=== PATIENT | female | born 1940 | race Caucasian/White ===

== ENCOUNTER 2016-09-05 13:26 | Inpatient (IN) | payer MEDICARE ==
[2016-09-05] VITALS (8 sets, daily range): BP systolic 94–126; BP diastolic 44–72; PULSE 73–101; RESP 14–18; TEMP 99.1–102.9; O2SAT 91–98
[~2016-09-05] VITALS: Ht 160 cm; Wt 64.4 kg
[~2016-09-05 13:26] MED LIST: ALBU6.7H INH; ASPI1TAB69 PO; DONE10TA7 PO; GABA400C5 PO; MEMA28CA PO; MONT10TA4 PO; NITR1SUB3 SL; OMEP20TA PO; SIMV40TA PO; SPIRCAP INH; SYMB160A INH; VENL75TA PO
--- NOTE | 2016-09-05 14:03 | PD ---
HPI Chief Complaint: Headache Time Seen by Provider: 13:39 Travel History International Travel<30 days: No Contact w/Intl Traveler<30days: No Traveled to known affect area: No History of Present Illness HPI Patient is a 76-year-old female with history of dementia who lives at home with her who presents to emergency room with her family members with complaints of headache and fever. As per patient's , he reports that patient woke up yesterday morning with complaints of a headache. Reports that he gave her some Tylenol, and reports that patient fatigue to have headache all day. reports that patient woke up this morning and complained of headache again, reports that he gave her Aleve. Reports that since her symptoms have not resolved, he decided to bring her to the hospital for evaluation. Reports that he did notice the patient had a wet cough today and appeared more congested. He did not noticed any fevers. Reports that at baseline, patient does have tremors, she has an unstable gait at all times and her gait is unchanged today. does report a remote history of intracerebral aneurysm which occurred a little over 10 years ago which reports could not be coiled due to the morphology of her aneurysm Patient at this time is unable to provide history, she does have history of dementia and does have short-term memory loss. PFSH Past Medical History Hx Anticoagulant Therapy: Yes (BABY ASA) Arthritis: Yes (back) Asthma: Yes Autoimmune Disease: No Blood Disorders: No Anxiety: No Depression: Yes Heart Rhythm Problems: No Cancer: No Cardiac Catheterization: Yes Cardiovascular Problems: Yes ([place], [place]OL) High Cholesterol: Yes Chemotherapy: No Chest Pain: Yes Congestive Heart Failure: No COPD: Yes Cerebrovascular Accident: No Coronary Artery Disease: Yes Dementia: Yes Diabetes: No Diminished Hearing: No Endocrine: No Gastrointestinal Disorders: Yes GERD: Yes Genitourinary: Yes Headaches: Yes Hepatitis: No Hiatal Hernia: No Hypertension: Yes Immune Disorder: No Implanted Vascular Access Dvce: Yes Kidney Stones: No Musculoskeletal: Yes Neurologic: Yes (DEMENTIA) Psychiatric: No Reproductive: No Respiratory: Yes (copd) Immunizations Current: Yes Migraines: No Myocardial Infarction: Yes (2004) Radiation Therapy: No Renal Failure: No Seizures: No Sickle Cell Disease: No Sleep Apnea: No Thyroid Disease: No Ulcer: No ?: Not Menopausal: Yes Past Surgical History Abdominal Surgery: Yes (CHOLYSYSTECTOMY) AICD: No Appendectomy: Yes Arteriovenous Shunt: No Body Medical Devices: CARDIAC STENT Cardiac Surgery: Yes (CARDIAC STENT) Cholecystectomy: Yes Coronary Stent: Yes (x2) Ear Surgery: No Endocrine Surgery: No Eye Surgery: Yes (BILAT CATARACT) Genitourinary Surgery: No Gynecologic Surgery: Yes (TOTAL HYSTERECTOMY) Hysterectomy: Yes Insulin Pump: No Joint Replacement: No Neurologic Surgery: No Oral Surgery: Yes (TOP TEETH EXTRACTED) Pacemaker: No Thoracic Surgery: No Tonsillectomy: Yes Other Surgery: Yes Social History Alcohol Use: No Tobacco Use: No (quit 35+ yrs ago, smoked 1 ppd for 20+ yrs) Substance Use: No Allergies-Medications (Allergen,Severity, Reaction): Coded Allergies: Plavix (Verified Allergy, Mild, Rash, 09/05/16) Reported Meds & Prescriptions Reported Meds & Active Scripts Active Reported Donepezil 10 Mg Tab 5 Mg PO BID Effexor (Venlafaxine HCl) 75 Mg Tab 75 Mg PO DAILY Spiriva Handihaler (Tiotropium Inh) 18 Mcg Cap 18 Mcg INH DAILY 1 capsule = 18 mcg Omeprazole 20 Mg Tab 20 Mg PO DAILY Nitroglycerin SL (Nitroglycerin) 0.4 Mg Subl 0.4 Mg SL DIRECTED PRN ONE TABLET UNDER THE TONGUE NEEDED FOR CHEST PAIN, MAY REPEAT EVERY FIVE MINUTES FOR A TOTAL OF 3 DOSES OR CALL 911 IF NO RELIEF Namenda Xr (Memantine) 28 Mg Caper 28 Mg PO DAILY Montelukast (Montelukast Sodium) 10 Mg Tab 10 Mg PO HS Gabapentin 400 Mg Cap 400 Cap PO BID Symbicort Inh (Budesonide/Formoterol Fumarate) 160-4.5 Mcg/Act Aero 2 Puff INH Q12HR Simvastatin 40 Mg Tab 40 Mg PO HS Aspirin 81 Mg Tabdr 81 Mg PO DAILY Proventil Hfa 6.7 GM Inh (Albuterol Sulfate) 90 Mcg/Act Aer 1 Puff INH Q4H PRN Review of Systems General / Constitutional: No: Fever Eyes: No: Visual changes HENT: Positive: Headaches Cardiovascular: No: Chest Pain or Discomfort Respiratory: No: Shortness of Breath Gastrointestinal: No: Abdominal Pain Genitourinary: No: Dysuria Musculoskeletal: No: Pain Skin: No Rash Neurologic: No: Weakness Psychiatric: No: Depression Endocrine: No: Polydipsia Hematologic/Lymphatic: No: Easy Bruising Physical Exam Exam Limitations: Poor Historian Narrative GENERAL: mild distress, patient overall confused SKIN: Warm and dry. HEAD: Atraumatic. Normocephalic. EYES: Pupils equal and round. No injection or drainage. ENT: No nasal bleeding or discharge. Mucous membranes pink and moist. NECK: Trachea midline. No JVD. CARDIOVASCULAR: Regular rate and rhythm. No murmur appreciated. RESPIRATORY: No accessory muscle use. Clear to auscultation. Breath sounds equal bilaterally. GASTROINTESTINAL: Abdomen soft, non-tender, nondistended. Hepatic and splenic margins not palpable. MUSCULOSKELETAL: No obvious deformities. No clubbing. No cyanosis. No edema. NEUROLOGICAL: Awake and alert. No obvious cranial nerve deficits. Motor grossly within normal limits. Normal speech. PSYCHIATRIC: Appropriate mood and affect; insight and judgment normal. Data Data Last Documented VS Vital Signs Date Time Temp Pulse Resp B/P Pulse Ox O2 Delivery O2 Flow Rate FiO2 09/05/16 14:15 98 Room Air 09/05/16 14:15 102.9 82 18 106/44 Orders Electrocardiogram (09/05/16 13:49) Complete Blood Count With Diff (09/05/16 13:49) Comprehensive Metabolic Panel (09/05/16 13:49) Prothrombin Time / Inr (Pt) (09/05/16 13:49) Act Partial Throm Time (Ptt) (09/05/16 13:49) Lactic Acid Sepsis Protocol (09/05/16 13:49) Magnesium (Mg) (09/05/16 13:49) Lipase (09/05/16 13:49) Ckmb (Isoenzyme) Profile (09/05/16 13:49) Troponin I (09/05/16 13:49) Urinalysis - C+S If Indicated (09/05/16 13:49) Influenzae A/B Antigen (09/05/16 13:49) Blood Culture (09/05/16 13:49) Chest, Single Ap (09/05/16 13:49) Ecg Monitoring (09/05/16 13:49) Iv Access Insert/Monitor (09/05/16 13:49) Oximetry (09/05/16 13:49) Ct Brain W/O Iv Contrast(Rout) (09/05/16 14:00) Dexamethasone Inj (Decadron Inj) (09/05/16 14:15) Piperacil-Tazo 3.375 Gm Premix (Zosyn 3. (09/05/16 14:15) Vancomycin Inj (Vancomycin Inj) (09/05/16 14:15) Ct Thorax/ Chest Wo Iv Contras (09/05/16 ) ^ Straight Catheter (09/05/16 15:43) Acetaminophen (Tylenol) (09/05/16 16:00) Labs Laboratory Tests Test 09/05/16 09/05/16 09/05/16 13:50 13:58 15:45 White Blood Count 4.8 TH/MM3 Red Blood Count 4.61 MIL/MM3 Hemoglobin 13.7 GM/DL Hematocrit 40.5 % Mean Corpuscular Volume 88.0 FL Mean Corpuscular Hemoglobin 29.8 PG Mean Corpuscular Hemoglobin 33.8 % Concent Red Cell Distribution Width 14.2 % Platelet Count 118 TH/MM3 Mean Platelet Volume 8.3 FL Neutrophils (%) (Auto) 84.9 % Lymphocytes (%) (Auto) 8.4 % Monocytes (%) (Auto) 4.5 % Eosinophils (%) (Auto) 0.8 % Basophils (%) (Auto) 1.4 % Neutrophils # (Auto) 4.1 TH/MM3 Lymphocytes # (Auto) 0.4 TH/MM3 Monocytes # (Auto) 0.2 TH/MM3 Eosinophils # (Auto) 0.0 TH/MM3 Basophils # (Auto) 0.1 TH/MM3 CBC Comment DIFF FINAL Differential Comment Prothrombin Time 10.7 SEC Prothromb Time International 1.0 RATIO Ratio Activated Partial 27.1 SEC Thromboplast Time Sodium Level 141 MEQ/L Potassium Level 3.7 MEQ/L Chloride Level 106 MEQ/L Carbon Dioxide Level 23.6 MEQ/L Anion Gap 11 MEQ/L Blood Urea Nitrogen 17 MG/DL Creatinine 0.74 MG/DL Estimat Glomerular Filtration 76 ML/MIN Rate Random Glucose 107 MG/DL Calcium Level 8.6 MG/DL Magnesium Level 2.0 MG/DL Total Bilirubin 0.5 MG/DL Aspartate Amino Transf 29 U/L (AST/SGOT) Alanine Aminotransferase 29 U/L (ALT/SGPT) Alkaline Phosphatase 98 U/L Total Creatine Kinase 89 U/L Troponin I LESS THAN 0.02 NG/ML Total Protein 6.6 GM/DL Albumin 3.5 GM/DL Lipase 148 U/L Lactic Acid Level 1.4 mmol/L Urine pH 6.0 Urine Protein NEG mg/dL Urine Glucose (UA) 100 mg/dL Urine Ketones 15 mg/dL Urine Occult Blood LARGE Urine Nitrite POS Urine Bilirubin NEG Urine Leukocyte Esterase NEG MDM Medical Decision Making Medical Screen Exam Complete: Yes Emergency Medical Condition: Yes Interpretation(s) EKG at 1423: NSR at 90bpm, qt/qtc: 344/396, no acute st or t wave changes Vital Signs Date Time Temp Pulse Resp B/P Pulse Ox O2 Delivery O2 Flow Rate FiO2 09/05/16 13:29 101.7 101 16 126/72 91 Differential Diagnosis Intracranial hemorrhage, meningitis, influenza, pneumonia, migraine headaches, viral syndrome Narrative Course Patient is a 76-year-old female with history of intracranial aneurysm, dementia , presents to emergency room with complaints of headache. Patient's reports that patient is complaining of headache since yesterday, patient did take Tylenol yesterday for headache with no relief of symptoms. Reports that patient woke up this morning with similar symptoms. Patient does have history dementia, patient unable to provide history of present illness this time. Patient at this time denies headache or dizziness. Patient denies any cough or congestion, denies any chest pain or shortness of breath. All patient can tell me right now is that she "does not feel good." Given her symptoms, there are concerns for intracranial hemorrhage as she does have history of aneurysm which could not be coiled in the past. There is also concerns for possible meningitis given her fever as well as mild tachycardia. CT of the head was ordered. Patient has been pancultured, lactate ordered. IV antibiotics ordered. Plan to monitor patient Patient reevaluated, patient reports that she has resolution of headache at this time. Vital Signs Date Time Temp Pulse Resp B/P Pulse Ox O2 Delivery O2 Flow Rate FiO2 09/05/16 14:15 98 Room Air 09/05/16 14:15 102.9 82 18 106/44 98 Room Air 09/05/16 13:29 101.7 101 16 126/72 91 CBC & BMP Diagram 09/05/16 13:[address] 09/05/16 1400 Signed Impressions: Service Date/Time: Monday, September 05, 2016 14:01 - CONCLUSION: Diffuse atrophy and chronic ischemic findings. No acute intracranial findings. Abdelrahman Copeland MD Chest X-Ray 09/05/16 1349 Signed Impressions: Service Date/Time: Monday, September 05, 2016 14:00 - CONCLUSION: Confluent right apical opacity. Differential diagnosis is consolidation, mass, and soft tissue density related to rotation of the patient. Recommend repeat study with PA and lateral views when possible. Abdelrahman Copeland MD Microbiology Date/Time Procedure Status Source Growth 09/05/16 13:50 Aerobic Blood Culture Received Blood Peripheral Pending 09/05/16 13:50 Anaerobic Blood Culture Received Blood Peripheral Pending 09/05/16 13:58 Aerobic Blood Culture Received Blood Peripheral Pending 09/05/16 13:58 Anaerobic Blood Culture Received Blood Peripheral Pending 09/05/16 13:58 Influenza Types A,B Antigen (KARRIE) - Final Complete Nasal Aspirate NEGATIVE FOR FLU A AND B ANTIGEN.... 1506: I did review all labs and all studies with patient and family, I did review consideration for lumbar puncture. Family would like patient to be straight cathed for urine first before they consider LP as there reports that patient has had symptoms similar to this when she has had a UTI in the past. straight cath ordered. Patient at this time has complete resolution of headache. Given her symptoms, patient with low probability for meningitis. Patient with no menigmus on exam. Family does not want LP at this time. Ct of chest obtained to evaluate for possible pneumonia. CTA of brain ordered to evaluate for possible aneurysm Teresa Rosales DO Sep 05, 2016 14:03
[2016-09-05] MEDS ORDERED: VANCOMYCIN INJ 950 MG in SODIUM CHLOR 0.9% 250 ML INJ 250 ML IV ONE (14:15)
[2016-09-05] MEDS ORDERED: DEXAMETHASONE SOD PHOS 20 MG/5 ML VIAL IV PUSH ONE (14:15)
[2016-09-05] MEDS ORDERED: PIPERACIL-TAZO 3.375 GM PREMIX 50 ML IV ONE (14:15)
--- NOTE | 2016-09-05 14:17 | RADHPO ---
EXAM DATE/TIME: 09/05/2016 14:00 [facility] COMPARISON: No previous studies available for comparison. INDICATIONS : Patient states cough. MEDICAL HISTORY : Hypertension. Myocardial infarction. Dementia SURGICAL HISTORY : Tonsillectomy. Coronary artery stent. eye prosthesis, cataract surgery ENCOUNTER: Initial ACUITY: 1 day PAIN SCORE: 0/10 LOCATION: Bilateral chest FINDINGS: Single AP view of the chest. Confluent opacity in the right lung apex may represent overlying soft ti ssue shadow do to patient positioning. Right upper lobe consolidation in mass also in the differentia l diagnosis. Lungs otherwise clear. Cardiomediastinal silhouette within normal limits. No evidence of pleural effusion or pneumothorax. CONCLUSION: Confluent right apical opacity. Differential diagnosis is consolidation, mass, and soft tissue densit y related to rotation of the patient. Recommend repeat study with PA and lateral views when possible. Abdelrahman Copeland MD on September 05, 2016 at 14:13 Board Certified Radiologist. This report was verified electronically.
[2016-09-05 14:18] LABS: AUTOMATED NEUTROPHIL # 4.1 TH/MM3 (1.8-7.7); BASOPHIL # 0.1 TH/MM3 (0-0.2); BASOPHIL % 1.4 % (0.0-2.0); EOSINOPHIL % 0.8 % (0.0-4.0); HEMATOCRIT 40.5 % (35.0-46.0); HEMO FLAGS DIFF FINAL; LYMPH % 8.4 % (9.0-44.0); LYMPHOCYTE # 0.4 TH/MM3 (1.0-4.8); MEAN CORPUSCULAR HEMOGLOBIN 29.8 PG (27.0-34.0); MEAN CORPUSCULAR HGB CONC 33.8 % (32.0-36.0); MONO % 4.5 % (0.0-8.0); NEUT % 84.9 % (16.0-70.0); PLATELET COUNT 118 TH/MM3 (150-450); RED BLOOD COUNT 4.61 MIL/MM3 (4.00-5.30); RED CELL DISTRIBUTION WIDTH 14.2 % (11.6-17.2); WHITE BLOOD COUNT 4.8 TH/MM3 (4.0-11.0)
[2016-09-05 14:26] LABS: CHLORIDE 106 MEQ/L (98-107); POTASSIUM 3.7 MEQ/L (3.5-5.1); SODIUM (NA) 141 MEQ/L (136-145)
[2016-09-05 14:30] LABS: APTT (PATIENT) 27.1 SEC (24.3-30.1); PROTHROMBIN TIME - PATIENT 10.7 SEC (9.8-11.6)
[2016-09-05 14:32] LABS: ANION GAP 11 MEQ/L (5-15); BICARBONATE 23.6 MEQ/L (21.0-32.0); BLOOD UREA NITROGEN 17 MG/DL (7-18)
[2016-09-05 14:34] LABS: AST (GOT) 29 U/L (15-37); GLOMERULAR FILTRATION RATE 76 ML/MIN (>89)
[2016-09-05 14:36] LABS: TOTAL BILIRUBIN ADULT 0.5 MG/DL (0.2-1.0)
[2016-09-05 14:37] LABS: ALKALINE PHOSPHATASE 98 U/L (45-117)
[2016-09-05 14:40] LABS: CREATINE KINASE 89 U/L (26-192)
[2016-09-05 14:45] LABS: ALT (GPT) 29 U/L (10-53)
--- NOTE | 2016-09-05 14:50 | RADHPO ---
EXAM DATE/TIME: 09/05/2016 14:01 [facility] COMPARISON: CT BRAIN W/O CONTRAST, March 09, 2016, 22:03. INDICATIONS : Fever, weakness and headache. RADIATION DOSE: 59.98 CTDIvol (mGy) MEDICAL HISTORY : Cardiovascular disease. Chronic obstructive pulmonary disease. Hypertension.Ant icoagulant therapy. SURGICAL HISTORY : Coronary artery stent. ENCOUNTER: Initial ACUITY: 1 day PAIN SCALE: 0/10 LOCATION: cranial TECHNIQUE: Multiple contiguous axial images were obtained of the head. Using automated exposure control and adjustment of the mA and/or kV according to patient size, radiation dose was kept as low as reasonably achievable to obtain optimal diagnostic quality images. FINDINGS: CEREBRUM: Ventricles, sulci, and cisterns are diffusely prominent indicating diffuse atrophy. No change in prominent diffuse periventricular hypodensity indicating chronic ischemic findings. No evid ence of midline shift, mass lesion, hemorrhage or acute infarction. No extra-axial fluid collections are seen. POSTERIOR FOSSA: The cerebellum and brainstem are intact. The 4th ventricle is midline. The cer ebellopontine angle is unremarkable. EXTRACRANIAL: The visualized portion of the orbits is intact. SKULL: The calvaria is intact. No evidence of skull fracture. CONCLUSION: Diffuse atrophy and chronic ischemic findings. No acute intracranial findings. Abdelrahman Copeland MD on September 05, 2016 at 14:47 Board Certified Radiologist. This report was verified electronically.
[2016-09-05] MEDS ORDERED: ACETAMINOPHEN 325 MG TAB PO ONE ×2 (16:00→22:45)
[2016-09-05 16:01] LABS: BLOOD, URINE LARGE (NEG); GLUCOSE,URINE 100 mg/dL (NEG); KETONE, URINE 15 mg/dL (NEG)
[2016-09-05 16:06] LABS: NITRITE,URINE POS (NEG)
[2016-09-05 16:13] LABS: URINE COLOR YELLOW (YELLW/STRAW)
[2016-09-05 16:14] LABS: BACTERIA, URINE MANY /hpf; MUCUS URINE FEW /lpf (OCC); RBC, URINE 0-3 /hpf (0-3); SQUAMOUS EPITHELIAL CELL URINE 0-5 /hpf (0-5)
[2016-09-05 16:15] LABS: COMMENT (UR) CATH-CULTURE IND; CULTURE IF INDICATED CATH CULTURE IND
[2016-09-05] MEDS ORDERED: IOHEXOL 350 MG/ML 10 ML VIAL (for RAD DIAG) IV ONE (16:46)
--- NOTE | 2016-09-05 17:00 | RADHPO ---
EXAM DATE/TIME: 09/05/2016 16:21 [facility] COMPARISON: CHEST SINGLE AP, September 05, 2016, 14:00. INDICATIONS : Confluent right apical opacity. RADIATION DOSE: 8.55 CTDIvol (mGy) MEDICAL HISTORY : Chronic obstructive pulmonary disease. Hypertension. SURGICAL HISTORY : Coronary artery stent. ENCOUNTER: Initial ACUITY: 1 day PAIN SCALE: 5/10 LOCATION: chest TECHNIQUE: Volumetric scanning of the chest was performed. Using automated exposure control and adjustment of t he mA and/or kV according to patient size, radiation dose was kept as low as reasonably achievable to obtain optimal diagnostic quality images. FINDINGS: LUNGS: 5-6 mm right middle lobe nodular density on image #34. Mild inferior right lower lobe atelectasis edison jennifer consolidation posteriorly. The right lung apex is clear. Chest x-ray density likely represented p rominent vasculature, that is within normal limits for age. PLEURAE: There is no pleural thickening or pleural effusion. MEDIASTINUM: Diffuse aortic calcification. Thoracic aortic diameter within normal limits. Small pericardial effusi on. No enlarged lymph nodes. AXILLAE: Within normal limits. No lymphadenopathy. MUSCULOSKELETAL: Prominent degenerative findings of the thoracic spine. Severe central osteophyte at T10-11 resulting in severe central canal narrowing. MISCELLANEOUS: The visualized upper abdominal organs demonstrate no acute abnormality. CONCLUSION: 1. No evidence of mass at the right lung apex. Chest x-ray density likely represents prominent right- sided mediastinal vasculature. 2. Degenerative findings of the thoracic spine with central osteophyte resulting in severe central ca nal narrowing at T10-11. 3. 5-6 mm right middle lobe nodular density. Recommend 12 month followup noncontrast chest CT. 4. Patchy right lower lung atelectasis. The findings described above include a newly detected solid pulmonary nodule of 4-6 mm average diamet er. Guidelines from the Fleischner Society for the follow-up and management of newly detected indeter minate pulmonary nodules in persons >34 years old depend on nodule size (average of length and width) and underlying risk factors (including smoking and other risk factors). Please consider the followi ng recommendations after clinical assessment of risk factors. For 4-6 mm nodules: In low risk patients, follow-up CT at 12 months; if unchanged, no further follow-up needed. In high risk patients, initial follow-up CT at 6-12 months, then 18-24 months if no change. Abdelrahman Copeland MD on September 05, 2016 at 16:53 Board Certified Radiologist. This report was verified electronically.
[2016-09-05] MEDS ORDERED: SODIUM CHLORID 0.9% 500 ML INJ 500 ML IV ONE (17:30)
--- NOTE | 2016-09-05 17:30 | PD ---
Physical Exam Narrative Received sign out from previous provider to follow up CTA, CT chest and UA 76yo F with PMH of dementia and brain aneurysm here with headache, coughing and shaking. Pt has resting tremors in arms but said it was worst before. Pt currently denies any headache, neck pain. Pt is well appearing and has no nuchal rigidity, no focal neurologic deficits. Pt presents to the ED with fever , tachycardia and empirically given vancomycin and zosyn. CT brain showed no acute intracranial findings. CXR showed confluent right opacity so CT chest was ordered to further evaluate. CT chest showed no evidence of mass in right lung apex. CXR density likely prominent right sided mediastinal vasculature. However, there is a newly detected solid pulmonary nodule of 4-6mm and I informed pt of this so she can have follow up in 6-12 months. Labs reviewed, no leukocytosis. Lactic acid 1.4. CMP unremarkable. UA showed positive nitrite. Pt given antibiotics already. CTA head showed stable tiny aneurysms involving the basilar tip and right MCA bifurcation. No significant stenosis or occlusion. CTA neck showed no significant stenosis or occlusion. I reevaluated the patient and she states she does not feel well. States her headache is back. Acetaminophen given. Will admit patient for sepsis secondary to UTI. Discussed with Dr. Landry and accepted to his service. Data Data Last Documented VS Vital Signs Date Time Temp Pulse Resp B/P Pulse Ox O2 Delivery O2 Flow Rate FiO2 09/05/16 18:10 84 16 109/51 93 Room Air 09/05/16 17:10 99.1 Orders Electrocardiogram (09/05/16 13:49) Complete Blood Count With Diff (09/05/16 13:49) Comprehensive Metabolic Panel (09/05/16 13:49) Prothrombin Time / Inr (Pt) (09/05/16 13:49) Act Partial Throm Time (Ptt) (09/05/16 13:49) Lactic Acid Sepsis Protocol (09/05/16 13:49) Magnesium (Mg) (09/05/16 13:49) Lipase (09/05/16 13:49) Ckmb (Isoenzyme) Profile (09/05/16 13:49) Troponin I (09/05/16 13:49) Urinalysis - C+S If Indicated (09/05/16 13:49) Influenzae A/B Antigen (09/05/16 13:49) Blood Culture (09/05/16 13:49) Chest, Single Ap (09/05/16 13:49) Ecg Monitoring (09/05/16 13:49) Iv Access Insert/Monitor (09/05/16 13:49) Oximetry (09/05/16 13:49) Ct Brain W/O Iv Contrast(Rout) (09/05/16 14:00) Dexamethasone Inj (Decadron Inj) (09/05/16 14:15) Piperacil-Tazo 3.375 Gm Premix (Zosyn 3. (09/05/16 14:15) Vancomycin Inj (Vancomycin Inj) (09/05/16 14:15) Ct Thorax/ Chest Wo Iv Contras (09/05/16 ) ^ Straight Catheter (09/05/16 15:43) Acetaminophen (Tylenol) (09/05/16 16:00) Cta Brain W Iv Contrast W 3d (09/05/16 ) Urine Culture (09/05/16 15:45) Cta Neck W Iv Contrast W 3d (09/05/16 ) Sodium Chlorid 0.9% 500 Ml Inj (Ns 500 M (09/05/16 17:30) Iohexol 350 Inj (Omnipaque 350 Inj) (09/05/16 16:46) Acetaminophen (Tylenol) (09/05/16 22:45) Admit Order (Ed Use Only) (09/05/16 22:41) Labs Laboratory Tests Test 09/05/16 09/05/16 09/05/16 13:50 13:58 15:45 White Blood Count 4.8 TH/MM3 Red Blood Count 4.61 MIL/MM3 Hemoglobin 13.7 GM/DL Hematocrit 40.5 % Mean Corpuscular Volume 88.0 FL Mean Corpuscular Hemoglobin 29.8 PG Mean Corpuscular Hemoglobin 33.8 % Concent Red Cell Distribution Width 14.2 % Platelet Count 118 TH/MM3 Mean Platelet Volume 8.3 FL Neutrophils (%) (Auto) 84.9 % Lymphocytes (%) (Auto) 8.4 % Monocytes (%) (Auto) 4.5 % Eosinophils (%) (Auto) 0.8 % Basophils (%) (Auto) 1.4 % Neutrophils # (Auto) 4.1 TH/MM3 Lymphocytes # (Auto) 0.4 TH/MM3 Monocytes # (Auto) 0.2 TH/MM3 Eosinophils # (Auto) 0.0 TH/MM3 Basophils # (Auto) 0.1 TH/MM3 CBC Comment DIFF FINAL Differential Comment Prothrombin Time 10.7 SEC Prothromb Time International 1.0 RATIO Ratio Activated Partial 27.1 SEC Thromboplast Time Sodium Level 141 MEQ/L Potassium Level 3.7 MEQ/L Chloride Level 106 MEQ/L Carbon Dioxide Level 23.6 MEQ/L Anion Gap 11 MEQ/L Blood Urea Nitrogen 17 MG/DL Creatinine 0.74 MG/DL Estimat Glomerular Filtration 76 ML/MIN Rate Random Glucose 107 MG/DL Calcium Level 8.6 MG/DL Magnesium Level 2.0 MG/DL Total Bilirubin 0.5 MG/DL Aspartate Amino Transf 29 U/L (AST/SGOT) Alanine Aminotransferase 29 U/L (ALT/SGPT) Alkaline Phosphatase 98 U/L Total Creatine Kinase 89 U/L Troponin I LESS THAN 0.02 NG/ML Total Protein 6.6 GM/DL Albumin 3.5 GM/DL Lipase 148 U/L Lactic Acid Level 1.4 mmol/L Urine Color YELLOW Urine Turbidity CLEAR Urine pH 6.0 Urine Specific [place] 1.029 Urine Protein NEG mg/dL Urine Glucose (UA) 100 mg/dL Urine Ketones 15 mg/dL Urine Occult Blood LARGE Urine Nitrite POS Urine Bilirubin NEG Urine Leukocyte Esterase NEG Urine RBC 0-3 /hpf Urine WBC 6-8 /hpf Urine Squamous Epithelial 0-5 /hpf Cells Urine Bacteria MANY /hpf Urine Mucus FEW /lpf Microscopic Urinalysis Comment CATH-CULTURE IND MDM Supervised Visit with MARS: No Diagnosis Primary Impression: Sepsis Qualified Code: A41.9 - Sepsis, due to unspecified organism Additional Impression: UTI (urinary tract infection) Qualified Code: N39.0 - Urinary tract infection with hematuria, site unspecified Admitting Information Admitting Physician Requests: Admit Aiyana Fernandez DO Sep 05, 2016 17:30
--- NOTE | 2016-09-05 22:00 | RADHPO ---
EXAM DATE/TIME: 09/05/2016 16:32 [facility] COMPARISON: CTA BRAIN W 3D RECON, May 22, 2013, 18:41. INDICATIONS : Evaluate for aneurysm. Cephalgia. IV CONTRAST: 75 cc Omnipaque 350 (iohexol) IV RADIATION DOSE: 42.80 CTDIvol (mGy) ; Combined studies MEDICAL HISTORY : Chronic obstructive pulmonary disease. Hypertension. Dementia. SURGICAL HISTORY : Coronary artery stent. ENCOUNTER: Initial ACUITY: 2 days PAIN SCALE: 6/10 LOCATION: cranial TECHNIQUE: Volumetric scanning was performed using a multi-row detector CT scanner. The data was post processed with a variety of visualization algorithms including full volume maximum intensity projection, multi -planar sliding thin slab reformation, curved planar reformation, and surface rendering techniques. Using automated exposure control and adjustment of the mA and/or kV according to patient size, radiat ion dose was kept as low as reasonably achievable to obtain optimal diagnostic quality images. FINDINGS: There are stable tiny aneurysms involving the basilar tip and the right MCA bifurcation. These have n ot changed significantly in size compared to the previous examination in May of 2013. The right A1 segment is small in caliber compared to left. There is no significant stenosis or occlusion of the anterior or middle cerebral arteries. The bilateral posterior cerebral arteries are patent. There up permost portions of the vertebral arteries and the basilar artery are patent. CONCLUSION: Stable tiny aneurysms involving the basilar tip and right MCA bifurcation. Small caliber right A1 seg ment. No significant stenosis or occlusion. Henok Barrera MD on September 05, 2016 at 21:52 Board Certified Radiologist. This report was verified electronically.
--- NOTE | 2016-09-05 22:02 | RADHPO ---
EXAM DATE/TIME: 09/05/2016 16:32 [place] COMPARISON: CTA BRAIN W 3D RECON, September 05, 2016, 16:32. INDICATIONS : Cepahlgia. Evaluate for aneurysm. IV CONTRAST: 75 cc Omnipaque 350 (iohexol) IV ; Cumulative dose for multiple exams. RADIATION DOSE: 42.80 CTDIvol (mGy) ; Combined studies MEDICAL HISTORY : Chronic obstructive pulmonary disease. Dementia. Hypertension. SURGICAL HISTORY : Coronary artery stent. ENCOUNTER: Initial ACUITY: 2 days PAIN SCALE: 2/10 LOCATION: neck Elevated flow velocities and ICA/CCA ratios have been found to correlate with increased degrees of vessel stenosis, calculated as percentage of diameter relative to a normal segment of distal ICA/CCA. TECHNIQUE: Volumetric scanning was performed using a multirow detector CT scanner. The data was post processed with a variety of visualization algorithms including full-volume maximum intensity projection, multip lanar sliding thin-slab reformation, curved-planar reformation, and surface-rendering techniques. Us ing automated exposure control and adjustment of the mA and/or kV according to patient size, radiatio n dose was kept as low as reasonably achievable to obtain optimal diagnostic quality images. FINDINGS: AORTIC ARCH: There is a bovine arch. No evidence of ostial narrowing. RIGHT CAROTID: The common carotid artery is intact. The carotid bulb has a normal configuration without ulceration o r narrowing. The internal carotid artery lumen is smooth without stenosis. The external carotid sujata ry is intact. LEFT CAROTID: The common carotid artery is intact. The carotid bulb has a normal configuration without ulceration or narrowing. The internal carotid artery lumen is smooth without stenosis. The external carotid ar [place] is intact. VERTEBRALS: The vertebral arteries have a symmetric diameter. No stenotic lesions are seen. CONCLUSION: 1. No significant stenosis or occlusion. 2. Bovine arch. Henok Barrera MD on September 05, 2016 at 21:58 Board Certified Radiologist. This report was verified electronically.
--- NOTE | 2016-09-05 22:30 | EKG ---
Date Performed: 09/05/2016 Time Performed: 14:23:46 PTAGE: 76 years EKG: Sinus rhythm Normal ECG based on available leads PREVIOUS TRACING : 03/09/2016 21.32 Compared to prior tracing no significant change DOCTOR: Espinoza Rivera Interpretating Date/Time 09/05/2016 22:29:31
[2016-09-05] MEDS ORDERED: NALOXONE HCL 0.4 MG/ML AMP IV PRN (22:45)
[2016-09-05] MEDS ORDERED: SODIUM CHLORIDE 0.9% FLUSH 10 ML FLUSH IV FLUSH PRN (22:45)
[2016-09-05] MEDS ORDERED: ALBUTEROL SULFATE 90 MCG/ACT HFA 8 GM INHALER INH PRN (22:45)
[2016-09-06] VITALS (9 sets, daily range): BP systolic 102–160; BP diastolic 54–98; PULSE 62–79; RESP 12–20; TEMP 97.7–98.9; O2SAT 93–99
[2016-09-06] MEDS: cefTRIAXone INJ 1,000 MG in SODIUM CHLORIDE 0.9% INJ 100 ML IV SCH ×2 (00:10→22:58)
[2016-09-06] MEDS: SODIUM CHLOR 0.9% 1000 ML INJ 1,000 ML IV SCH ×4 (00:12→22:58)
[2016-09-06] MEDS: SODIUM CHLORIDE 0.9% FLUSH 10 ML FLUSH IV FLUSH SCH ×2 (09:00→20:53)
[2016-09-06] MEDS ORDERED: NAMENDA XR 28MG PO SCH (09:00)
[2016-09-06] MEDS ORDERED: GABAPENTIN 400 MG CAP PO SCH (09:00)
[2016-09-06 10:03] LABS: CHLORIDE 106 MEQ/L (98-107); POTASSIUM 3.4 MEQ/L (3.5-5.1); SODIUM (NA) 143 MEQ/L (136-145)
[2016-09-06 10:09] LABS: ANION GAP 9 MEQ/L (5-15); BICARBONATE 27.7 MEQ/L (21.0-32.0)
[2016-09-06 10:11] LABS: BLOOD UREA NITROGEN 12 MG/DL (7-18)
[2016-09-06 10:12] LABS: ALT (GPT) 28 U/L (10-53); GLOMERULAR FILTRATION RATE 81 ML/MIN (>89)
[2016-09-06 10:13] LABS: AST (GOT) 23 U/L (15-37)
[2016-09-06 10:14] LABS: TOTAL BILIRUBIN ADULT 0.4 MG/DL (0.2-1.0)
[2016-09-06 10:15] LABS: ALKALINE PHOSPHATASE 86 U/L (45-117)
--- NOTE | 2016-09-06 11:02 | HHI.HP ---
[facility] Service [facility] Primary Care Physician Grey Menchaca MD Admission Diagnosis Sepsis secondary to UTI Diagnoses: (1) UTI (urinary tract infection) Diagnosis: Principal (2) Febrile illness Diagnosis: Principal Chief Complaint: Headache, shakes Travel History International Travel<30 Days: No Contact w/Intl Traveler <30 Da: No Traveled to Known Affected Are: No Sepsis Criteria SIRS Criteria (2 or more): Temp > 100.9 or < 96.8 Sepsis Criteria (SIRS+source): Infect source susp/known History of Present Illness 76-year-old female with known history of hypertension, coronary artery disease, chronic obstructive pulmonary disease, gastroesophageal reflux, dementia, back pain, cerebral aneurysms who presented to hospital because of headache, shaking. Patient was in normal state of health until Sunday when she started developing a headache. Her was concerned because patient does have history of cerebral aneurysms. They gave her some Tylenol with relief of the headache. The headache did return again later on that afternoon which she took more Tylenol with resolution of her headache. She did well until yesterday morning when she woke up at approximately noon, at that time she was not feeling well and her states that she was not her normal self. Without asking about questions that she normally does. Looks down in the dumps. She had a headache at that time and had involuntary shaking so her brought her to the hospital for evaluation. At that time patient was found to have febrile illness, urinary tract infection as recommended patient be admitted for further evaluation management. The patient does have dementia and was a question transferred by and daughter at bedside. At the present time they indicate the patient is much improved. She is back to her normal self. Review of Systems Constitutional: COMPLAINS OF: Fever, Chills, DENIES: Diaphoretic episodes, Fatigue, Weight gain, Weight loss, Dizziness, Change in appetite, Night Sweats Eyes: DENIES: Blurred vision, Diplopia, Eye inflammation, Eye pain, Vision loss , Double Vision Ears, nose, mouth, throat: DENIES: Vertigo, Nasal discharge, Throat pain, Ear Pain, Running Nose, Sinus Pain Respiratory: DENIES: Apneas, Cough, Snoring, Wheezing, Hemoptysis, Sputum production, Shortness of breath Cardiovascular: DENIES: Chest pain, Palpitations, Syncope, Dyspnea on Exertion , Lower Extremity Edema, Orthopnea Gastrointestinal: DENIES: Abdominal pain, Black stools, Bloody stools, Constipation, Diarrhea, Nausea, Vomiting, Difficulty Swallowing, Anorexia Neurologic: COMPLAINS OF: Abnormal gait, Poor Balance, DENIES: Headache, Localized weakness, Paresthesias, Seizures, Speech Problems, Tremor Psychiatric: DENIES: Anxiety, Confusion, Mood changes, Depression Past Family Social History Past Medical History Hypertension Hyperlipidemia coronary artery disease Dementia Gastroesophageal reflux History of myocardial infarction Chronic obstructive pulmonary disease History of brain aneurysm Past Surgical History Cataract surgery Cholecystectomy Appendectomy Hysterectomy Cardiac elevation with stenting Bilateral bunion surgery Tonsillectomy Reported Medications Reported Meds & Active Scripts Active Reported Donepezil 10 Mg Tab 5 Mg PO BID Effexor (Venlafaxine HCl) 75 Mg Tab 75 Mg PO DAILY Spiriva Handihaler (Tiotropium Inh) 18 Mcg Cap 18 Mcg INH DAILY 1 capsule = 18 mcg Omeprazole 20 Mg Tab 20 Mg PO DAILY Nitroglycerin SL (Nitroglycerin) 0.4 Mg Subl 0.4 Mg SL DIRECTED PRN ONE TABLET UNDER THE TONGUE NEEDED FOR CHEST PAIN, MAY REPEAT EVERY FIVE MINUTES FOR A TOTAL OF 3 DOSES OR CALL 911 IF NO RELIEF Namenda Xr (Memantine) 28 Mg Caper 28 Mg PO DAILY Montelukast (Montelukast Sodium) 10 Mg Tab 10 Mg PO HS Gabapentin 400 Mg Cap 400 Cap PO BID Symbicort Inh (Budesonide/Formoterol Fumarate) 160-4.5 Mcg/Act Aero 2 Puff INH Q12HR Simvastatin 40 Mg Tab 40 Mg PO HS Aspirin 81 Mg Tabdr 81 Mg PO DAILY Proventil Hfa 6.7 GM Inh (Albuterol Sulfate) 90 Mcg/Act Aer 1 Puff INH Q4H PRN Allergies: Coded Allergies: Plavix (Verified Allergy, Mild, Rash, 09/06/16) Family History Reviewed is significant for mother having leukemia. Does not know father's history Social History Patient quit smoking in 1986, prior to that was indicated that she smoked it least since 1965. No indication of any alcohol or illicit drugs Physical Exam Vital Signs Vital Signs Date Time Temp Pulse Resp B/P Pulse Ox O2 Delivery O2 Flow Rate FiO2 09/06/16 07:20 98.3 72 18 109/58 93 Room Air 09/06/16 06:15 68 16 111/59 98 Room Air 09/06/16 03:30 62 16 102/66 99 Room Air 09/06/16 02:00 98.9 70 14 116/54 Room Air 09/06/16 00:00 72 12 103/59 93 Room Air 09/05/16 22:00 73 14 108/58 94 Room Air 09/05/16 18:10 84 16 109/51 93 Room Air 09/05/16 17:51 86 16 95 Room Air 09/05/16 17:10 99.1 90 16 94/52 94 Room Air 09/05/16 16:25 88 16 107/46 96 Room Air 09/05/16 15:41 92 16 102/51 94 Room Air 09/05/16 14:42 91 16 117/64 96 Room Air 09/05/16 14:15 98 Room Air 09/05/16 14:15 102.9 82 18 106/44 98 Room Air 09/05/16 13:39 16 96 Room Air 09/05/16 13:29 101.7 101 16 126/72 91 Physical Exam GENERAL: Well-developed, well-nourished, in no acute distress. alert and rather pleasant HEENT: Head is normocephalic without any lesions or masses noted. Facial features are symmetric. Eyes: Pupils equal round reactive to light. Extraocular muscles are intact. Conjunctivae were clear. Oropharyngeal: Pharynx without any erythema edema. Tongue is midline without deviation. Buccal mucosa is moist without any masses or lesions NECK: Supple without any masses. Trachea midline no deviation. No JVD, no bruits are appreciated CARDIAC: Regular rhythm, regular rate. S1/S2 are heard. No murmurs gallops or rubs. LUNGS: Rhonchi noted right lower lung. No wheeze or rales. No use of accessory muscles on inspiration or expiration. ABDOMEN: Soft, nontender. Nondistended. Bowel sounds heard in all 4 quadrants. No organomegaly or masses. Negative rebound, negative guarding EXTREMITIES: No edema, pulses are equal bilaterally. No cyanosis or clubbing NEUROLOGY: Mood and affect appear appropriate. Cranial nerves II through XII grossly intact. Muscle strength 5/5 in upper and lower extremities bilaterally. Deep tendon reflexes are 2+ in upper and lower extremities bilaterally. Laboratory Laboratory Tests Test 09/05/16 09/05/16 09/05/16 09/06/16 13:50 13:58 15:45 09:00 White Blood Count 4.8 Red Blood Count 4.61 Hemoglobin 13.7 Hematocrit 40.5 Mean Corpuscular Volume 88.0 Mean Corpuscular Hemoglobin 29.8 Mean Corpuscular Hemoglobin 33.8 Concent Red Cell Distribution Width 14.2 Platelet Count 118 Mean Platelet Volume 8.3 Neutrophils (%) (Auto) 84.9 Lymphocytes (%) (Auto) 8.4 Monocytes (%) (Auto) 4.5 Eosinophils (%) (Auto) 0.8 Basophils (%) (Auto) 1.4 Neutrophils # (Auto) 4.1 Lymphocytes # (Auto) 0.4 Monocytes # (Auto) 0.2 Eosinophils # (Auto) 0.0 Basophils # (Auto) 0.1 CBC Comment DIFF FINAL Differential Comment Prothrombin Time 10.7 Prothromb Time International 1.0 Ratio Activated Partial 27.1 Thromboplast Time Sodium Level 141 143 Potassium Level 3.7 3.4 Chloride Level 106 106 Carbon Dioxide Level 23.6 27.7 Anion Gap 11 9 Blood Urea Nitrogen 17 12 Creatinine 0.74 0.70 Estimat Glomerular Filtration 76 81 Rate Random Glucose 107 100 Calcium Level 8.6 8.6 Magnesium Level 2.0 Total Bilirubin 0.5 0.4 Aspartate Amino Transf 29 23 (AST/SGOT) Alanine Aminotransferase 29 28 (ALT/SGPT) Alkaline Phosphatase 98 86 Total Creatine Kinase 89 Troponin I LESS THAN 0.02 Total Protein 6.6 6.3 Albumin 3.5 3.2 Lipase 148 Lactic Acid Level 1.4 Urine Color YELLOW Urine Turbidity CLEAR Urine pH 6.0 Urine Specific Bertha 1.029 Urine Protein NEG Urine Glucose (UA) 100 Urine Ketones 15 Urine Occult Blood LARGE Urine Nitrite POS Urine Bilirubin NEG Urine Leukocyte Esterase NEG Urine RBC 0-3 Urine WBC 6-8 Urine Squamous Epithelial 0-5 Cells Urine Bacteria MANY Urine Mucus FEW Microscopic Urinalysis Comment CATH-CULTURE IND Date/Time Procedure Status Source Growth 09/05/16 15:45 Urine Culture Received Urine Catheterized Urine Pending 09/05/16 13:58 Influenza Types A,B Antigen (KARRIE) - Final Complete Nasal Aspirate NEGATIVE FOR FLU A AND B ANTIGEN.... 09/05/16 13:58 Aerobic Blood Culture Received Blood Peripheral Pending 09/05/16 13:58 Anaerobic Blood Culture Received Blood Peripheral Pending Result Diagram: 09/05/16 1350 09/06/16 0900 Imaging Last Impressions Head CT 09/05/16 1400 Signed Impressions: Service Date/Time: Monday, September 05, 2016 14:01 - CONCLUSION: Diffuse atrophy and chronic ischemic findings. No acute intracranial findings. Abdelrahman Copeland MD Chest X-Ray 09/05/16 1349 Signed Impressions: Service Date/Time: Monday, September 05, 2016 14:00 - CONCLUSION: Confluent right apical opacity. Differential diagnosis is consolidation, mass, and soft tissue density related to rotation of the patient. Recommend repeat study with PA and lateral views when possible. Abdelrahman Copeland MD Neck CTA 09/05/16 0000 Signed Impressions: Service Date/Time: Monday, September 05, 2016 16:32 - CONCLUSION: 1. No significant stenosis or occlusion. 2. Bovine arch. Henok Barrera MD Head CTA 09/05/16 0000 Signed Impressions: Service Date/Time: Monday, September 05, 2016 16:32 - CONCLUSION: Stable tiny aneurysms involving the basilar tip and right MCA bifurcation. Small caliber right A1 segment. No significant stenosis or occlusion. Henok Barrera MD Chest CT 09/05/16 0000 Signed Impressions: Service Date/Time: Monday, September 05, 2016 16:21 - CONCLUSION: 1. No evidence of mass at the right lung apex. Chest x-ray density likely represents prominent right-sided mediastinal vasculature. 2. Degenerative findings of the thoracic spine with central osteophyte resulting in severe central canal narrowing at T10-11. 3. 5-6 mm right middle lobe nodular density. Recommend 12 month followup noncontrast chest CT. 4. Patchy right lower lung atelectasis. The findings described above include a newly detected solid pulmonary nodule of 4-6 mm average diameter. Guidelines from the Fleischner Society for the follow-up and management of newly detected indeterminate pulmonary nodules in persons >34 years old depend on nodule size (average of length and width) and underlying risk factors (including smoking and other risk factors). Please consider the following recommendations after clinical assessment of risk factors. For 4-6 mm nodules: In low risk patients, follow-up CT at 12 months; if unchanged, no further follow-up needed. In high risk patients, initial follow-up CT at 6-12 months, then 18-24 months if no change. Abdelrahman Copeland MD Septic Shock Reassessment Heart: Regular rate and rhythm Lungs: Other (rhonchi) Skin: Warm, Moist Peripheral Pulses: Bounding Right Radial Bounding Left Radial Capillary Refill: Brisk, <2 seconds Assessment and Plan Assessment and Plan Febrile illness, likely secondary to urinary tract infection, clinically improving, afebrile Chest x-rays done which did not indicate any acute abnormality Urinalysis does indicate positive nitrate, occult blood, leukocytosis. Await urine culture for evaluation Continue Rocephin until urine culture complete for appropriate antibiotic use Continue IV fluids Reported history of brain aneurysms with headache CT scan does not indicate any acute abnormality Abnormal chest x-ray with right lung nodule CT scan of the chest does indicate a newly detected solid pulmonary nodule 46 millimeters. Recommending twelve-month follow-up noncontrast CT the chest. Chronic obstructive pulmonary disease with cough Continue O2 supplementation maintain O2 sats greater 92% Continue inhalers as needed Hypertension, hyponatremia, coronary disease Continue home medications Dementia continue home medications DVT prevention Lovenox Written by Antoine Clark, acting as scribe for Dr. Coates on 09/06/16 at 11:01. All or portions of this note were transcribed by scribkurt Clark. I, Dr. Antoine Coates personally performed the history, physical exam, and medical decision making; and confirmed the accuracy of the information in the transcribed note. Authenticated by Dr. Antoine Coates on 09/06/16 at 11:22. Physician Certification 2 Midnight Certification Type: Admission for Inpatient Services Order for Inpatient Services The services are ordered in accordance with Medicare regulations or non- Medicare payer requirements, as applicable. In the case of services not specified as inpatient-only, they are appropriately provided as inpatient services in accordance with the 2-midnight benchmark. Estimated LOS (days): 3 days is the estimated time the patient will need to remain in the hospital, assuming treatment plan goals are met and no additional complications. Post-Hospital Plan: Not yet determined Problem Qualifiers (1) UTI (urinary tract infection): Qualified Code: N39.0 - Urinary tract infection with hematuria, site unspecified Antoine Clark Sep 06, 2016 11:02 Antoine Coates MD Sep 06, 2016 11:22
[2016-09-06] MEDS ORDERED: TRAM50TA PO (11:41)
[2016-09-06] MEDS: PANTOPRAZOLE SOD 20 MG DELAYED RELEASE TAB PO SCH (11:43)
[2016-09-06] MEDS: DONEPEZIL HCL 5 MG TAB PO SCH ×2 (11:43→20:54)
[2016-09-06] MEDS: ENOXAPARIN SODIUM 40 MG/0.4 ML SYRINGE SQ SCH (11:46)
[2016-09-06] MEDS: TIOTROPIUM BROMIDE 18 MCG INH INH SCH (11:47)
[2016-09-06] MEDS: BUDESONIDE-FORMOTEROL 160/4.5 MCG INHALER INH SCH ×2 (11:47→20:53)
[2016-09-06] MEDS: ASPIRIN EC 81 MG TABEC PO SCH (11:54)
[2016-09-06] MEDS: VENLAFAXINE HCL XR 75 MG CAP PO SCH (11:54)
--- NOTE | 2016-09-06 14:58 | HHI.FF ---
Face to Face Verification Diagnosis: (1) Febrile illness (2) UTI (urinary tract infection) (3) Lumbar degenerative disc disease Physical Therapy Order: Evaluate and Treat, Improve ambulation, Strength and gait training Home Health Nursing Order: Medical education Signs/symptoms of disease process Nursing assessment with vital signs I have seen patient Evelyne Wells on 09/06/16. My clinical findings support the need for the requested home health care services because: Deconditioned w/ increased weakness I certify that my clinical findings support that this patient is homebound because: Impaired cognitive ability/safety Unsteady gait/balance Antoine Clark Sep 06, 2016 14:58
[2016-09-06] MEDS ORDERED: traMADol HCL 50 MG TAB PO ONE (17:45)
[2016-09-06] MEDS ORDERED: PILL SPLITTER OTHER PRN (17:45)
[2016-09-06] MEDS: GABAPENTIN 100 MG CAP PO SCH (20:54)
[2016-09-06] MEDS: traMADol HCL 50 MG TAB PO SCH (20:56)
[2016-09-06] MEDS ORDERED: PRAVASTATIN SOD 80 MG TAB PO SCH (21:00)
[2016-09-07] VITALS: BP 111/65; PULSE 72; RESP 20; TEMP 98.3; O2SAT 94
[2016-09-07 08:00] VITALS: BP 118/78; PULSE 68; RESP 18; TEMP 97.6; O2SAT 93
[2016-09-07] MEDS: SODIUM CHLORIDE 0.9% FLUSH 10 ML FLUSH IV FLUSH SCH (09:00)
[2016-09-07] MEDS: ENOXAPARIN SODIUM 40 MG/0.4 ML SYRINGE SQ SCH (09:51)
[2016-09-07] MEDS: BUDESONIDE-FORMOTEROL 160/4.5 MCG INHALER INH SCH (09:51)
[2016-09-07] MEDS: TIOTROPIUM BROMIDE 18 MCG INH INH SCH (09:51)
[2016-09-07] MEDS: DONEPEZIL HCL 5 MG TAB PO SCH (09:52)
[2016-09-07] MEDS: GABAPENTIN 100 MG CAP PO SCH (09:52)
[2016-09-07] MEDS: ASPIRIN EC 81 MG TABEC PO SCH (09:52)
[2016-09-07] MEDS: VENLAFAXINE HCL XR 75 MG CAP PO SCH (09:52)
[2016-09-07] MEDS: PANTOPRAZOLE SOD 20 MG DELAYED RELEASE TAB PO SCH (09:52)
[2016-09-07] MEDS: traMADol HCL 50 MG TAB PO SCH (09:52)
[2016-09-07] MEDS ORDERED: PNEUMOCOCCAL POLYVALENT INJ 25 MCG/0.5 ML SYR IM ONE (10:00)
[2016-09-07 10:30] VITALS: O2SAT 96
[2016-09-07 10:55] VITALS: RESP 18
[2016-09-07] MEDS ORDERED: CEFT500T3 PO (11:42)
--- NOTE | 2016-09-07 11:48 | HHI.PR ---
Subjective Remarks Patient seen and examined today with Dr. aJquez. Patient appears to be doing much better. states that she is doing better and would like to go home. Did have episode of confusion last evening. He has been notified of this by his regular medical doctor that anytime away from home that she may get more confused. She is back to her baseline this morning. They are very eager to go home and willing to go home at this time. Care was discussed with daughters on the phone. Objective Vitals Vital Signs Date Time Temp Pulse Resp B/P Pulse Ox O2 Delivery O2 Flow Rate FiO2 09/07/16 10:55 18 09/07/16 10:30 96 21 09/07/16 08:00 97.6 68 18 118/78 93 09/07/16 00:00 98.3 72 20 111/65 94 09/06/16 20:00 98.9 79 20 129/75 96 09/06/16 16:00 98.3 72 20 121/74 95 09/06/16 12:00 98.2 68 20 121/72 96 I/O 09/06/16 09/06/16 09/06/16 09/07/16 09/07/16 09/07/16 07:00 15:00 23:00 07:00 15:00 23:00 Intake Total 630 ml 1924 ml 60 ml Balance 630 ml 1924 ml 60 ml Intake Oral 630 ml 540 ml 60 ml IV Total 1384 ml # Voids 2 4 4 2 # Bowel Movements 1 2 2 1 Result Diagram: 09/05/16 1350 09/06/16 0900 Objective Remarks GENERAL: Well-developed, well-nourished, in no acute distress. alert and rather pleasant HEENT: Head is normocephalic without any lesions or masses noted. Facial features are symmetric. Eyes: Extraocular muscles are intact. Conjunctivae were clear. NECK: Supple without any masses. Trachea midline no deviation. No JVD, no bruits are appreciated CARDIAC: Regular rhythm, regular rate. S1/S2 are heard. No murmurs gallops or rubs. LUNGS: Rhonchi noted right lower lung. No wheeze or rales. No use of accessory muscles on inspiration or expiration. ABDOMEN: Soft, nontender. Nondistended. Bowel sounds heard in all 4 quadrants. No organomegaly or masses. Negative rebound, negative guarding EXTREMITIES: No edema, pulses are equal bilaterally. No cyanosis or clubbing NEUROLOGY: Mood and affect appear appropriate. Cranial nerves II through XII grossly intact. Moving all extremities, speech is clear Urinary Catheter: No Vascular Central Line Catheter: No A/P Assessment and Plan Febrile illness, likely secondary to urinary tract infection, clinically improving, afebrile Chest x-rays done which did not indicate any acute abnormality Urinalysis does indicate positive nitrate, occult blood, leukocytosis. Urine culture no growth for 24 hours Continue Rocephin until urine culture complete for appropriate antibiotic use Continue IV fluids Reported history of brain aneurysms with headache CT scan does not indicate any acute abnormality Abnormal chest x-ray with right lung nodule CT scan of the chest does indicate a newly detected solid pulmonary nodule 46 millimeters. Recommending twelve-month follow-up noncontrast CT the chest. Chronic obstructive pulmonary disease with cough Continue O2 supplementation maintain O2 sats greater 92% Continue inhalers as needed Hypertension, hyponatremia, coronary disease Continue home medications Dementia continue home medications DVT prevention Lovenox Discharge Planning Discharge home in stable condition Activity: Ad julieta. Diet: Healthy heart diet Medications per medication reconciliation Follow-up primary medical doctor in one week Antoine Clark Sep 07, 2016 11:47
== END 2016-09-07 12:55 | disposition home or self-care (01) | DRG 872 ==
LOC: PHED 13:26 → PHEDA 22:42 → PHEDH 09-06 02:42 → PH3A 09-06 08:04
PROVIDERS: ADMIT Family Medicine; ATTEND Family Medicine
DX: A41.9 Sepsis, unspecified organism (principal); N39.0 Urinary tract infection, site not specified; E87.1 Hypo-osmolality and hyponatremia; F03.90 Unspecified dementia, unspecified severity, without behavioral disturbance, psychotic disturbance, mood disturbance, and anxiety; J98.11 Atelectasis; J44.9 Chronic obstructive pulmonary disease, unspecified; E78.5 Hyperlipidemia, unspecified; I10 Essential (primary) hypertension; I25.10 Atherosclerotic heart disease of native coronary artery without angina pectoris; I25.2 Old myocardial infarction; J45.909 Unspecified asthma, uncomplicated; K21.9 Gastro-esophageal reflux disease without esophagitis; R31.9 Hematuria, unspecified; Z86.79 Personal history of other diseases of the circulatory system; Z87.891 Personal history of nicotine dependence; Z95.5 Presence of coronary angioplasty implant and graft
CPT/HCPCS: 70450; 70496; 70498; 71010; 71250; 80053; 81001; 82550; 82948; 83605; 83690; 83735; 84145; 84484; 85025; 85610; 85730; 87040; 87086; 87804; 93005; 94150; 96361; 96365; 96366; 96367; 96375; J0696; J1100; J1650; J2543; J3370; J7030; J7040; J7050; Q9967

== ENCOUNTER 2017-06-28 19:10 | Emergency (ER) | payer MEDICARE ==
[~2017-06-28] VITALS: Ht 162.6 cm; Wt 57.4 kg
[~2017-06-28 19:10] MED LIST changes: +CEFT500T3 PO; -OMEP20TA PO; +OMEP20TA93 PO; +TRAM50TA PO
[2017-06-28 19:59] VITALS: BP 164/83; PULSE 76; RESP 20; TEMP 98.4
--- NOTE | 2017-06-28 20:16 | PD ---
HPI Chief Complaint: Injury Time Seen by Provider: 20:20 Travel History International Travel<30 days: No Contact w/Intl Traveler<30days: No Traveled to known affect area: No History of Present Illness [facility] right side, and now has rt shoulder pain: sharp, limited rom, 8/10, nonradiating....no syncope, no bht, no general or lateralizing weakness, also denies fever/cough/cp/backpain/abdpain/n/v/d/ either. all:plavix pmhx: copd, dm, mi, htn, pshx:gb, appy, PFSH Past Medical History Hx Anticoagulant Therapy: Yes (BABY ASA) Alzheimer's Disease: Yes Arthritis: Yes Asthma: Yes Autoimmune Disease: No Blood Disorders: No Anxiety: No Depression: Yes Heart Rhythm Problems: No Cancer: No Cardiac Catheterization: Yes Cardiovascular Problems: Yes (SD, CHOL) High Cholesterol: Yes Chemotherapy: No Chest Pain: Yes Congestive Heart Failure: No COPD: Yes Cerebrovascular Accident: No Coronary Artery Disease: Yes Dementia: Yes Diabetes: No Diminished Hearing: Yes Endocrine: No Gastrointestinal Disorders: Yes GERD: Yes Genitourinary: Yes Headaches: Yes Hepatitis: No Hiatal Hernia: No Hypertension: Yes Immune Disorder: No Implanted Vascular Access Dvce: Yes Kidney Stones: No Musculoskeletal: Yes Neurologic: Yes (DEMENTIA) Psychiatric: No Reproductive: No Respiratory: Yes (copd) Immunizations Current: Yes Migraines: No Myocardial Infarction: Yes (2004) Radiation Therapy: No Renal Failure: No Seizures: No Sickle Cell Disease: No Sleep Apnea: No Thyroid Disease: No Ulcer: No ?: Not Menopausal: Yes Past Surgical History Abdominal Surgery: Yes (CHOLYSYSTECTOMY APPY) AICD: No Appendectomy: Yes Arteriovenous Shunt: No Body Medical Devices: CARDIAC STENT Cardiac Surgery: Yes (CARDIAC STENT) Cholecystectomy: Yes Coronary Stent: Yes Ear Surgery: No Endocrine Surgery: No Eye Surgery: Yes (CATARACTS) Genitourinary Surgery: No Gynecologic Surgery: Yes (TOTAL HYSTERECTOMY) Hysterectomy: Yes Insulin Pump: No Joint Replacement: No Neurologic Surgery: No Oral Surgery: Yes (TOP TEETH EXTRACTED) Pacemaker: No Thoracic Surgery: No Tonsillectomy: Yes Other Surgery: Yes Social History Alcohol Use: No Tobacco Use: Yes (QUIT 1988) Substance Use: No Allergies-Medications (Allergen,Severity, Reaction): Coded Allergies: clopidogrel (Unverified Allergy, Mild, Rash, 06/28/17) Reported Meds & Prescriptions Reported Meds & Active Scripts Active Reported Donepezil 10 Mg Tab 10 Mg PO HS Effexor (Venlafaxine HCl) 75 Mg Tab 75 Mg PO DAILY Spiriva Handihaler (Tiotropium Inh) 18 Mcg Cap 18 Mcg INH DAILY 1 capsule = 18 mcg Omeprazole 20 Mg Tab 20 Mg PO DAILY Nitroglycerin SL (Nitroglycerin) 0.4 Mg Subl 0.4 Mg SL DIRECTED PRN ONE TABLET UNDER THE TONGUE NEEDED FOR CHEST PAIN, MAY REPEAT EVERY FIVE MINUTES FOR A TOTAL OF 3 DOSES OR CALL 911 IF NO RELIEF Namenda Xr (Memantine) 28 Mg Caper 28 Mg PO DAILY Montelukast (Montelukast Sodium) 10 Mg Tab 10 Mg PO HS Gabapentin 400 Mg Cap 400 Cap PO BID Symbicort Inh (Budesonide/Formoterol Fumarate) 160-4.5 Mcg/Act Aero 2 Puff INH Q12HR Simvastatin 40 Mg Tab 60 Mg PO HS Proventil Hfa 6.7 GM Inh (Albuterol Sulfate) 90 Mcg/Act Aer 1 Puff INH Q4H PRN Review of Systems Except as stated in HPI: all other systems reviewed are Neg General / Constitutional: No: Fever Eyes: No: Visual changes HENT: No: Headaches Cardiovascular: No: Chest Pain or Discomfort Respiratory: No: Shortness of Breath Gastrointestinal: No: Abdominal Pain Genitourinary: No: Dysuria Musculoskeletal: Positive: Limited ROM, Pain Skin: No Rash Neurologic: No: Weakness Psychiatric: No: Depression Endocrine: No: Polydipsia Hematologic/Lymphatic: No: Easy Bruising Physical Exam Narrative GENERAL: SKIN: Warm and dry. HEAD: Atraumatic. Normocephalic. EYES: Pupils equal and round. No scleral icterus. No injection or drainage. ENT: No nasal bleeding or discharge. Mucous membranes pink and moist. NECK: Trachea midline. No JVD. CARDIOVASCULAR: Regular rate and rhythm. RESPIRATORY: No accessory muscle use. Clear to auscultation. Breath sounds equal bilaterally. GASTROINTESTINAL: Abdomen soft, non-tender, nondistended. Hepatic and splenic margins not palpable. MUSCULOSKELETAL: Extremities without clubbing, cyanosis, or edema. No obvious deformities. NEUROLOGICAL: Awake and alert. No obvious cranial nerve deficits. Motor grossly within normal limits. Five out of 5 muscle strength in the arms and legs. Normal speech. PSYCHIATRIC: Appropriate mood and affect; insight and judgment normal. Data Data Last Documented VS Vital Signs Date Time Temp Pulse Resp B/P (MAP) Pulse Ox O2 Delivery O2 Flow Rate FiO2 06/28/17 20:42 Room Air 06/28/17 19:59 98.4 76 20 164/83 (110) Orders Orders Shoulder, Complete (>2vws) (06/28/17 ) MDM Medical Decision Making Medical Screen Exam Complete: Yes Emergency Medical Condition: Yes Medical Record Reviewed: Yes Differential Diagnosis FX V DISLOCATION V CONTUSION Narrative Course XRAY SHOWS EVIDENCE OF DISTAL CLAVICULAR FX, WITHOUT ANGULATION Diagnosis Primary Impression: Traumatic closed fracture of distal clavicle with minimal displacement Qualified Codes: S42.031A - Displaced fracture of lateral end of right clavicle, initial encounter for closed fracture Patient Instructions: Clavicle Fracture (ED), General Instructions Scripts Codeine-Acetaminophen (Codeine-Acetaminophen) 30-300 mg Tab 1 TAB PO Q4H Y for PAIN, #10 TAB 0 Refills Prov: Cristi Mock MD 06/28/17 Disposition: 01 DISCHARGE HOME Condition: Stable Cristi Mock MD Jun 28, 2017 20:16
--- NOTE | 2017-06-28 21:35 | RADRPT ---
EXAM DATE/TIME: 06/28/2017 20:51 This report includes an Addendum and supersedes previous reports for this exam. [facility] COMPARISON: No previous studies available for comparison. INDICATIONS : Fall this afternoon. MEDICAL HISTORY : Chronic obstructive pulmonary disease. Dementia. Hypertension. SURGICAL HISTORY : Coronary artery stent. ENCOUNTER: Initial ACUITY: 1 day PAIN SCORE: 9/10 LOCATION: Right Shoulder FINDINGS: 4 views of the right shoulder reveal no acute fracture involving the distal clavicle. No angulation o r distraction. No overlap. There is a high riding humeral head which is chronic in nature. Soft tissu es are unremarkable. Osteopenia noted. CONCLUSION: 1. Acute distal clavicular fracture without angulation or overlap. 2. Chronic rotator cuff injury. 3. Osteopenia. Ashkan Gallardo Jr., MD on June 28, 2017 at 21:32 Board Certified Radiologist. This report was verified electronically. ADDENDUM: There is a typographical error in the body of the report. There is an acute distal clavicular fractur e as stated in the conclusion. Ashkan Gallardo Jr., MD on July 03, 2017 at 9:29 Board Certified Radiologist. This report was verified electronically.
[2017-06-28] MEDS ORDERED: CODE30TA2 PO (21:39)
[2017-06-28] MEDS ORDERED: ACETAMINOPHEN/CODEINE 300 MG/30 MG TAB PO ONE (21:45)
== END 2017-06-28 21:59 | disposition home or self-care (01) ==
LOC: PHED 19:10
DX: S42.031A Displaced fracture of lateral end of right clavicle, initial encounter for closed fracture (principal); E78.00 Pure hypercholesterolemia, unspecified; J44.9 Chronic obstructive pulmonary disease, unspecified; I10 Essential (primary) hypertension; I25.10 Atherosclerotic heart disease of native coronary artery without angina pectoris; I25.2 Old myocardial infarction; K21.9 Gastro-esophageal reflux disease without esophagitis; W01.0XXA Fall on same level from slipping, tripping and stumbling without subsequent striking against object, initial encounter; Z87.891 Personal history of nicotine dependence
CPT/HCPCS: 73030; 99283